=== PATIENT | female | born 1990 | race Hispanic/Latino ===

== ENCOUNTER 2017-05-08 16:12 | Outpatient (CLI) | payer BC ==
--- NOTE | 2017-05-08 19:48 | CT ---
ABDOMEN AND PELVIS CT NONCONTRAST; 05/08/17 No prior comparisons. CLINICAL HISTORY: Hematuria, unspecified. FINDINGS: There is no urolithiasis or obstructive uropathy. There is heterogeneity of the hepatic parenchyma w ith multifocal areas of low attenuation compatible with hepatic steatosis. The solid abdominal organs, bowel, lymph nodes and vasculature are incompletely evaluated without th e presence of IV or enteric contrast. There is moderate retained fecal material in the colon. Promin ent distention of the rectosigmoid colon due to impacted fecal material. The lung bases are clear. N o free air. No acute osseous abnormalities. IMPRESSION: 1. No evidence of urolithiasis or obstructive uropathy. 2. Hepatic steatosis. 3. Prominent retained fecal material with associated distention of the rectosigmoid colon. POS: MED
== END 2017-05-08 16:13 | disposition home or self-care (01) ==
LOC: CT 16:12
PROVIDERS: ATTEND Internal Medicine
DX: R31.9 Hematuria, unspecified (principal); K76.0 Fatty (change of) liver, not elsewhere classified
CPT/HCPCS: 74176

== ENCOUNTER 2018-01-17 11:55 | Outpatient (CLI) | payer BC | END 2018-01-17 11:56 | disposition home or self-care (01) | LOC: BICRAD 11:55 | PROVIDERS: ATTEND Internal Medicine Rheumatology | DX: M54.89 Other dorsalgia (principal) | CPT/HCPCS: 72100 ==

== ENCOUNTER 2019-08-29 06:59 | Outpatient (CLI) | payer BC ==
--- NOTE | 2019-08-29 08:12 | ULT ---
EXAM: Abdominal ultrasound complete: HISTORY: Abdominal pain COMPARISON: CT, 05/08/2017 FINDINGS: Coarse diffuse liver echogenicity evidence for fatty change. Focal 1.4 x 1.5 cm diameter circumscribed hypoechoic mass in the right lobe of the liver. Etiology is uncertain. Consider follow-up abdomen CT scan with and without IV contrast with liver mass/hemangioma protocol for further assessment. The gallbladder demonstrates no evidence for gallstones, wall thickening, or pericholecystic fluid. The common bile duct is Within normal limits. Visualized pancreas: Unremarkable. Visualized abdominal aorta: Unremarkable. Visualized IVC: Unremarkable. Visualized spleen: Unremarkable. Visualized kidneys: No evidence for hydronephrosis or solid or cystic mass. No mass, abscess, adenopathy, or abnormal fluid collection or other acute process. IMPRESSION: Coarse increased liver echogenicity evidence for fatty change. 1.4 x 1.5 cm diameter circumscribed hypoechoic mass right lobe of the liver. This could represent a f ocal nodular area of fatty sparing versus some type of neoplastic mass. Follow-up imaging as above.
--- NOTE | 2019-08-29 08:21 | ULT ---
Exam: Pelvic ultrasound including Transabdominal, Transvaginal, And Vascular Duplex with color and spectral Doppler imaging: HISTORY: Abdominal pain COMPARISON: Abdomen ultrasound from today FINDINGS: The uterus is Within normal limits of size, shape, and position. Endometrial thickness:Within normal limits. Right ovary:Within normal limits. Left ovary:Within normal limits. No abscess or significant abnormal fluid collection. Vascular duplex examination demonstrates no evidence for ovarian torsion IMPRESSION: No significant acute process within the pelvis
== END 2019-08-29 07:00 | disposition home or self-care (01) ==
LOC: BICULT 06:59
PROVIDERS: ATTEND Family Medicine
DX: R10.84 Generalized abdominal pain (principal); K76.0 Fatty (change of) liver, not elsewhere classified; R16.0 Hepatomegaly, not elsewhere classified
CPT/HCPCS: 76856; 93975

== ENCOUNTER 2019-09-11 09:07 | Outpatient (CLI) | payer BC ==
--- NOTE | 2019-09-11 11:09 | CT ---
CT ABDOMEN WITH AND WITHOUT IV CONTRAST: Date: 09/11/2019 HISTORY: Abnormal ultrasound and concern for liver mass. FINDINGS: Correlation is made with the ultrasound of 08/29/2019. The lung bases are clear. There is diffusely decreased attenuation of the liver compared to the splee n, consistent with fatty infiltration. There is a 1.0 x 1.0 x 1.5 cm hypovascular lesion in the centr al portions of the right lobe of the liver. The spleen, pancreas, adrenal glands, and right kidney a re normal. There is a 7.0 mm low density lesion in the left renal cortex, likely cyst. No calcified g allstones are seen. There is a circumaortic left renal vein. No free air, free fluid, or lymphadenopa thy noted in the abdomen. The bony structures are unremarkable. IMPRESSION: 1. Fatty liver. 2. A 1.0 x 1.0 x 1.5 cm enhancing lesion in the right lobe of the liver. In a patient of this age, t his most likely due to FNH or hepatic adenoma. The possibility of malignancy or metastatic disease is low. 3. Probable small cyst in left kidney. POS: OFF
== END 2019-09-11 09:08 | disposition home or self-care (01) ==
LOC: SCSCT 09:07
PROVIDERS: ATTEND Family Medicine
DX: R16.0 Hepatomegaly, not elsewhere classified (principal); K76.0 Fatty (change of) liver, not elsewhere classified; K76.9 Liver disease, unspecified
CPT/HCPCS: 74170

== ENCOUNTER 2021-01-07 15:58 | Outpatient (CLI) | payer BC | END 2021-01-07 15:59 | disposition home or self-care (01) | LOC: BICCT 15:58 | PROVIDERS: ATTEND Family Medicine | DX: R31.0 Gross hematuria (principal); R30.0 Dysuria | CPT/HCPCS: 74176 ==

== ENCOUNTER 2021-07-25 07:32 | Outpatient (CLI) | payer BC ==
[2021-07-25 09:22] LABS: #Basophils 0.1 10x3/uL (0.0-0.2); #Eosinphils 0.2 10x3/uL (0.0-0.5); #Monocytes 0.3 10x3/uL (0.0-1.1); #Neutrophils 2.8 10x3/uL (1.5-8.4); %Basophils 1.1 % (0.0-2.0); %Eosinophils 3.2 % (0.0-6.0); %Lymphocytes 27.8 % (18.0-47.0); %Monocytes 7.3 % (0.0-10.0); %Neutrophils 60.4 % (40.0-75.0); Hemoglobin 13.6 g/dL (12.0-15.5); Mean Corpuscular HGB CONC 33.2 g/dL (32.0-36.0); Mean Corpuscular Hemoglobin 30.4 pg (27.0-33.0); Mean Corpuscular Volume 91.5 fl (81.6-98.3); Mean Platelet Volume 10.5 fl (7.4-10.4); Platelet Count 256 10x3/uL (150-450); RBC Distribution Width 12.6 % (11.5-14.5); Red Blood Cell (RBC) Count 4.48 10x6/uL (3.90-5.03); White Blood Cell (WBC) Count 4.7 10x3/uL (3.5-10.5)
[2021-07-25 09:33] LABS: BHCG - Serum Negative (NEGATIVE); Pregs Control Background? CLEAR/WHITE (CLR/WHITE); Pregs Control Bar Appear? YES (CONTROL BAR)
[2021-07-25 17:41] LABS: SARS-CoV-2 PCR by NAA Not Detected (NotDetected)
== END 2021-07-25 07:33 | disposition home or self-care (01) ==
LOC: LABBT 07:32
PROVIDERS: ATTEND Surgery
DX: Z01.812 Encounter for preprocedural laboratory examination (principal); Z20.822 Contact with and (suspected) exposure to COVID-19
CPT/HCPCS: 84703; 85025; U0003; U0005

== ENCOUNTER 2021-07-28 06:08 | Day surgery (SDC) | payer BC ==
[2021-07-25 13:43] VITALS: BMI 21.2
[2021-07-28] MEDS ORDERED: Fentanyl 100 MCG/2 ML VIAL ONE (06:16)
[2021-07-28] MEDS ORDERED: ceFAZolin 2 GM/DEX 5% 100 ML BAG ONE (06:22)
[2021-07-28] MEDS ORDERED: Bupivacaine 0.25% 10 ML VIAL ONE (06:36)
[2021-07-28] MEDS ORDERED: Xylocaine 1% w/ Epi 1:100K 10 ML VIAL ONE (06:36)
[2021-07-28] MEDS ORDERED: Midazolam HCl 2 mg/2 ml Vial ONE (07:12)
[2021-07-28] MEDS ORDERED: Scopolamine 1.5 mg/72 hour Patch ONE (07:12)
[2021-07-28] MEDS ORDERED: Ondansetron PF 4 MG/2 ML Vial ONE (07:37)
[2021-07-28] MEDS ORDERED: Ketorolac Tromethamine 30 MG/ML VIAL ONE (07:37)
[2021-07-28] MEDS ORDERED: Dexamethasone 20 MG/5 ML VIAL ONE (07:37)
[2021-07-28] MEDS ORDERED: PROPOFOL 200 MG/20 ML VIAL ONE (07:37)
[2021-07-28] MEDS ORDERED: Lidocaine 1% PF 5 ML VIAL ONE (07:37)
[2021-07-28] MEDS ORDERED: HYDROcodone/Acetaminophen 5/325 mg Tablet ONE (09:41)
== END 2021-07-28 10:10 | disposition home or self-care (01) ==
LOC: SDC 06:08
PROVIDERS: ATTEND Surgery
PROC: 0JB80ZZ Excision of Abdomen Subcutaneous Tissue and Fascia, Open Approach (ICD-10-PCS; principal; 2021-07-28)
DX: N80.8 Other endometriosis (principal); G89.29 Other chronic pain; Z79.899 Other long term (current) drug therapy; Z98.890 Other specified postprocedural states
CPT/HCPCS: 88305; 88341; 88342; J1100; J1885; J2250; J2405; J2704; J3010; S0020